=== PATIENT | female | born 1940 ===

== ENCOUNTER 2018-07-22 08:09 | Outpatient (CLI) | payer OTHER | END 2018-07-22 08:16 | disposition home or self-care (01) | LOC: SONOGRAMA 08:09 | DX: E04.2 Nontoxic multinodular goiter (principal) ==

== ENCOUNTER 2019-04-14 10:41 | Outpatient (CLI) | payer OTHER | END 2019-04-14 10:48 | disposition home or self-care (01) | LOC: SONOGRAMA 10:41 | DX: E04.1 Nontoxic single thyroid nodule (principal) ==